=== PATIENT | male | born 1985 | race American Indian/Alaskan Native ===

== ENCOUNTER 2020-07-10 22:46 | Emergency (ER) | payer OTHER ==
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
[2020-07-11 03:53] VITALS: BP 145/85
== END 2020-07-11 02:20 | disposition home or self-care (01) ==
LOC: ED 22:46
DX: R07.81 Pleurodynia (principal); M54.6 Pain in thoracic spine; Z79.899 Other long term (current) drug therapy; V49.49XA Driver injured in collision with other motor vehicles in traffic accident, initial encounter; W22.10XA Striking against or struck by unspecified automobile airbag, initial encounter; Y93.89 Activity, other specified; Y92.410 Unspecified street and highway as the place of occurrence of the external cause; Y99.8 Other external cause status